=== PATIENT | female | born 1955 | race African-American/Black ===

== ENCOUNTER 2016-05-04 | Outpatient (CLI) | payer OTHER | END 2016-05-04 16:04 | disposition critical access hospital (66) | DX: I49.9 Cardiac arrhythmia, unspecified (principal) | CPT/HCPCS: A0425; A0429 ==

== ENCOUNTER 2016-05-04 16:23 | Emergency (ER) | payer OTHER | END 2016-05-04 17:43 | disposition home or self-care (01) | DX: R00.2 Palpitations (principal); R03.0 Elevated blood-pressure reading, without diagnosis of hypertension; R01.1 Cardiac murmur, unspecified; I51.7 Cardiomegaly; D35.00 Benign neoplasm of unspecified adrenal gland ==

== ENCOUNTER 2016-05-21 12:51 | Outpatient (CLI) | payer OTHER | END 2016-05-21 12:52 | disposition home or self-care (01) | DX: R00.2 Palpitations (principal) ==

== ENCOUNTER 2018-10-29 11:42 | Outpatient (CLI) | payer OTHER | END 2018-10-29 11:43 | disposition EMS.NT | LOC: EMS 11:42 | PROVIDERS: ATTEND Surgery | DX: R09.89 Other specified symptoms and signs involving the circulatory and respiratory systems (principal) ==

== ENCOUNTER 2018-10-29 12:35 | Emergency (ER) | payer OTHER ==
--- NOTE | 2018-10-29 13:30 | ED Physician Documentation ---
PD HPI CHEST PAIN - Stated complaint Stated Complaint: RACING HR - Chief complaint Chief Complaint: Cardiac - History obtained from History obtained from: Patient, Family () - History of Present Illness Timing - onset: Today (63-year-old woman with history of hyperaldosteronism and hypertension. A few years ago she had episodic palpitations which was worked up with a 30-day Holter monitor and was negative per her. It started again today, since 1213 she is had several episodes of rapid heart rate that last minute is at the time and are followed by a feeling of wooziness and euphoria. There is no associated chest pain or trouble breathing. On my evaluation she is symptom- free but does note elevated blood pressure more than normal.) Review of Systems Constitutional: denies: Fever, Chills, Fatigue Cardiac: denies: Chest pain / pressure, Pedal edema, Calf pain Respiratory: denies: Dyspnea, Cough, Hemoptysis, Wheezing PD PAST MEDICAL HISTORY - Past Medical History Cardiovascular: Hypertension, Murmur - Present Medications Home Medications: Ambulatory Orders Medication Instructions Recorded Confirmed RX: Atenolol [Tenormin] 50 mg ORAL DAILY 05/04/16 10/29/18 RX: Spironolactone [Aldactone] 50 mg ORAL BID 05/04/16 10/29/18 RX: amLODIPine [Norvasc] 2.5 mg ORAL DAILY 05/04/16 10/29/18 - Allergies Allergies/Adverse Reactions: Allergies Allergy/AdvReac Type Severity Reaction Status Date / Time Penicillins Allergy Unknown Verified 10/29/18 12:50 - Social History Does the pt smoke?: No Smoking Status: Never smoker PD ED PE NORMAL - Vitals Vital signs reviewed: Yes - General General: Alert and oriented X 3, No acute distress - Neck Neck: Supple, no meningeal sign, No bony TTP - Cardiac Cardiac: RRR, No murmur - Respiratory Respiratory: No respiratory distress, Clear bilaterally - Abdomen Abdomen: Non tender - Extremities Extremities: No edema, No calf tenderness / cord - Neuro Neuro: Alert and oriented X 3, Normal speech Results - Vitals Vitals: Vital Signs - 24 hr 10/29/18 10/29/18 10/29/18 12:44 13:50 14:37 Temperature 36.7 C Heart Rate 90 88 88 Respiratory 20 20 18 Rate Blood Pressure 183/115 H 154/99 H 143/82 H O2 Saturation 99 98 98 Oxygen O2 Source Room air - EKG (time done) 1245 Rate: Rate (enter#) (89) Rhythm: NSR [place]: Normal QRS: LVH Ischemia: Non specific changes Computer interpretation: Agree with computer - Labs Labs: Laboratory Tests 10/29/18 10/29/18 10/29/18 13:35 13:35 13:35 WBC 6.5 RBC 4.50 Hgb 12.3 Hct 39.7 MCV 88.2 MCH 27.3 MCHC 31.0 L RDW 16.5 H Plt Count 219 MPV 10.1 Neut # (Auto) 5.1 Lymph # (Auto) 0.9 L [place] # (Auto) 0.3 Eos # (Auto) 0.0 Baso # (Auto) 0.0 Absolute Nucleated RBC 0.00 Nucleated RBC % 0.0 Sodium 141 Potassium 4.2 Chloride 102 Carbon Dioxide 26 Anion Gap 13.0 BUN 17 Creatinine 1.0 Estimated GFR (MDRD) 68 L Glucose 110 H Calcium 10.1 Total Bilirubin 0.5 AST 33 ALT 13 Alkaline Phosphatase 78 Total Protein 8.6 H Albumin 3.9 Globulin 4.7 H Albumin/Globulin Ratio 0.8 L Lipase 40 TSH 2.62 PD MEDICAL DECISION MAKING - ED course ED course: This is a 63-year-old woman with a history of palpitations who presents with the same. She had palpitations while in the department but there were no corresponding findings/arrhythmias on the monitor. She had this worked up with a negative Holter monitor in the past without findings. Of note she did drink more caffeine than normal today. Departure - Departure Disposition: 01 Home, Self Care Clinical Impression: Palpitations Condition: Good Record reviewed to determine appropriate education?: Yes Instructions: ED Palpitations Comments: As discussed there were no arrythmias or abnormal heart beats on monitor here. Labs were fine. Call your doctor to arrange a follow-up appointment, make the next available appointment. In the interim, return anytime if worse or if new symptoms develop. Discharge Date/Time: 10/29/18 14:42
[2018-10-29 13:43] LABS: BASOPHILS % (AUTO) 0.3 %; EOSINOPHILS % (AUTO) 0.3 %; HGB - HEMOGLOBIN 12.3 g/dL (12.0-16.0); LYMPHOCYTES # (AUTO) 0.9 10^3/uL (1.5-3.5); LYMPHOCYTES % (AUTO) 14.5 %; MEAN CORPUSCULAR HEMOGLOBIN 27.3 pg (27.0-31.0); MEAN CORPUSCULAR VOLUME 88.2 fL (81.0-99.0); MEAN PLATELET VOLUME 10.1 fL (7.9-10.8); MONOCYTES # (AUTO) 0.3 10^3/uL (0.0-1.0); MONOCYTES % (AUTO) 5.1 %; NEUTROPHILS # (AUTO) 5.1 10^3/uL (1.5-6.6); NEUTROPHILS % (AUTO) 79.5 %; PLT - PLATELET COUNT 219 10^3/uL (130-450); RED CELL DISTRIBUTION WIDTH 16.5 % (12.0-15.0); WHITE BLOOD COUNT 6.5 x10^3/uL (4.8-10.8)
[2018-10-29 13:55] LABS: ALBUMIN 3.9 g/dL (3.2-5.5); ALBUMIN/GLOBULIN RATIO 0.8 (1.0-2.2); BILIRUBIN,TOTAL 0.5 mg/dL (0.2-1.0); CALCIUM 10.1 mg/dL (8.5-10.3); TOTAL PROTEIN 8.6 g/dL (6.7-8.2)
[2018-10-29 14:37] VITALS: BP 143/82
== END 2018-10-29 14:42 | disposition home or self-care (01) ==
LOC: ED 12:35
DX: R00.2 Palpitations (principal); I10 Essential (primary) hypertension
CPT/HCPCS: 36415; 80053; 83690; 84443; 85025; 99282; 99284

== ENCOUNTER 2020-06-18 08:50 | Outpatient (CLI) | payer OTHER ==
--- NOTE | 2020-06-19 08:54 | Mammography Report ---
BILATERAL DIGITAL SCREENING MAMMOGRAM 3D/2D: 06/18/2020 CLINICAL: Routine screening. Comparison is made to exams dated: 03/13/2018 mammogram, 09/29/2016 mammogram, and [facility]. There are scattered fibroglandular elements in both breasts. No significant masses, calcifications, or other findings are seen in either breast. There has been no significant interval change. IMPRESSION: NEGATIVE There is no mammographic evidence of malignancy. A 1 year screening mammogram is recommended. This exam was interpreted at Station ID: [id number]. NOTE: For mammograms, a report in lay terms will be sent to the patient. Approximately 15% of breast malignancies will not be visualized mammographically. In the management of a palpable breast mass, a negative mammogram must not discourage biopsy of a clinically suspicious lesion. Electronically Signed By: Dwight Lujan M.D. ddp/penrad:06/18/2020 14:54:45 ACR BI-RADS Category 1: Negative 3341F PARENCHYMAL PATTERN: (A) - The breast(s) demonstrate(s) scattered fibroglandular densities. BI-RADS CATEGORY: (1) - 1 RECOMMENDATION: (ANNUAL) - Recommend routine annual screening mammography. [id number] 1 year screening LATERALITY: (B)
== END 2020-06-18 08:51 | disposition home or self-care (01) ==
LOC: DI.N 08:50
DX: Z12.31 Encounter for screening mammogram for malignant neoplasm of breast (principal)

== ENCOUNTER 2021-09-14 15:53 | Outpatient (CLI) | payer MEDICARE, OTHER ==
--- NOTE | 2021-09-15 12:15 | Mammography Report ---
BILATERAL DIGITAL SCREENING MAMMOGRAM 3D/2D: 09/14/2021 CLINICAL: Routine screening. Comparison is made to exams dated: 06/18/2020 mammogram - [facility], 03/13/2018 ma mmogram, 09/29/2016 mammogram, 09/15/2015 mammogram, 07/08/2014 mammogram, and 01/31/2013 mammogram - [facility]. There are scattered fibroglandular elements in both breasts. No significant masses, calcifications, or other findings are seen in either breast. There has been no significant interval change. IMPRESSION: NEGATIVE There is no mammographic evidence of malignancy. A 1 year screening mammogram is recommended. This exam was interpreted at Station ID: [id number]. NOTE: For mammograms, a report in lay terms will be sent to the patient. Approximately 15% of breast malignancies will not be visualized mammographically. In the management of a palpable breast mass, a negative mammogram must not discourage biopsy of a clinically suspicious lesion. Electronically Signed By: Johnathon Martínez M.D. at/penrad:09/15/2021 10:20:45 ACR BI-RADS Category 1: Negative 3341F PARENCHYMAL PATTERN: (A) - The breast(s) demonstrate(s) scattered fibroglandular densities. BI-RADS CATEGORY: (1) - 1 RECOMMENDATION: (ANNUAL) - Recommend routine annual screening mammography. [id number] 1 year screening LATERALITY: (B)
== END 2021-09-14 15:54 | disposition home or self-care (01) ==
LOC: DI.N 15:53
DX: Z12.31 Encounter for screening mammogram for malignant neoplasm of breast (principal)